=== PATIENT | male | born 1990 | race Caucasian/White ===

== ENCOUNTER 2020-05-03 12:14 | Outpatient (CLI) | payer OTHER | END 2020-05-03 12:15 | disposition critical access hospital (66) | LOC: EMS 12:14 | PROVIDERS: ATTEND Surgery | DX: S49.92XA Unspecified injury of left shoulder and upper arm, initial encounter (principal); V89.2XXA Person injured in unspecified motor-vehicle accident, traffic, initial encounter; Y93.89 Activity, other specified; Y92.410 Unspecified street and highway as the place of occurrence of the external cause | CPT/HCPCS: A0425; A0429 ==

== ENCOUNTER 2020-05-03 12:39 | Emergency (ER) | payer MEDICAID, OTHER ==
[2020-05-03 12:50] VITALS: BP 164/90
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
[2020-05-03] MEDS ORDERED: IBUPROFEN 800 MG TABLET PO STA (13:44)
== END 2020-05-03 13:51 | disposition home or self-care (01) ==
LOC: EDUNIT# → ED 12:39
DX: S40.012A Contusion of left shoulder, initial encounter (principal); V53.5XXA Driver of pick-up truck or van injured in collision with car, pick-up truck or van in traffic accident, initial encounter; Y92.410 Unspecified street and highway as the place of occurrence of the external cause
CPT/HCPCS: 73030; 99282; 99283; A9270